=== PATIENT | female | born 1970 | race Caucasian/White ===

== ENCOUNTER 2022-02-21 11:40 | Emergency (ER) | payer OTHER ==
[~2022-02-21] VITALS: Ht 167.6 cm; Wt 81.6 kg
--- NOTE | 2022-02-21 12:22 | NUR ---
THE PATIENT IS BIBS FOR FEELING DEPRESSED, FEELING SUICIDAL W/ PLAN TO OVERDOSE ON DRUGS. DENIES HI. DENIES VISUAL/AUDITORY HALLUCINATIONS. DENIES PAIN. IN ROOM AIR AND DENIES SOB. RESPIRATION REGULAR AND UNLABORED. WILL CONTINUE TO MONITOR THE PATIENT. Addendum: 02/21/22 at 2130 by LSTOOR KATALINA ANGULO ETA- [phone]
--- NOTE | 2022-02-21 12:55 | NUR ---
PT UNALBLE TO PROVIDE URINE SAMPLE, PROVIDED WITH URINE SAMPLE CUP AND WATER, WILL ENCOURAGE HER TO PROVIDE SAMPLE AT A LATER TIME.
--- NOTE | 2022-02-21 12:58 | NUR ---
KWAKU ZEPEDA COLLECTED AND SENT
[2022-02-21 13:07] LABS: BASOPHILS % (AUTO) 0.6 % (0.0-2.0); EOSINOPHILS % (AUTO) 0.7 % (0.0-6.0); HEMATOCRIT 40 % (33-45); HEMOGLOBIN 13.5 g/dL (11.5-14.8); LYMPHOCYTES # (AUTO) 1.4 K/uL (0.8-4.8); LYMPHOCYTES % (AUTO) 22.8 % (20.0-44.0); MEAN CORPUSCULAR HGB CONC 34 g/dl (31.0-36.0); MEAN CORPUSCULAR VOLUME 95 fL (82-100); MONOCYTES # (AUTO) 0.5 K/uL (0.1-1.30); MONOCYTES % (AUTO) 8.2 % (2.0-12.0); NEUTROPHILS # (AUTO) 4.1 K/uL (1.8-8.9); NEUTROPHILS % (AUTO) 67.7 % (43.0-81.0); PLATELET COUNT (AUTO) 230 K/uL (150-450); RED BLOOD CELL COUNT(AUTO) 4.18 MIL/uL (4.0-5.2); WHITE BLOOD COUNT (AUTO) 6.1 K/uL (4.3-11.0)
--- NOTE | 2022-02-21 13:19 | NUR ---
urine collected and sent to the lab
[2022-02-21 13:22] LABS: ALANINE AMINOTRANSFERASE 26 U/L (12-78); ALBUMIN 3.3 g/dL (3.4-5.0); ALKALINE PHOSPHATASE 106 U/L (46-116); ASPARTATE AMINOTRANSFERASE 16 U/L (15-37); BILIRUBIN,DIRECT 0.1 mg/dL (0.0-0.2); BILIRUBIN,TOTAL 0.4 mg/dL (0.2-1.0); CALCIUM, SERUM 8.6 mg/dL (8.5-10.1); CARBON DIOXIDE 28 mmol/L (21-32); CHLORIDE 103 mmol/L (98-107); CREATININE 0.7 mg/dL (0.6-1.3); GLUCOSE 116 mg/dL (74-106); POTASSIUM 3.7 mmol/L (3.5-5.1); SODIUM SERUM 138 mmol/L (136-145); TOTAL PROTEIN, SERUM 6.9 g/dL (6.4-8.2); UREA NITROGEN, BLOOD 12 mg/dL (7-18)
[2022-02-21 13:33] LABS: ACETAMINOPHEN < 10 ug/ml (10-30); ALCOHOL, BLOOD < 3 mg/dL (0-0)
[2022-02-21 13:54] LABS: BILIRUBIN,URINE NEGATIVE (NEGATIVE); COLOR,URINE YELLOW (YELLOW); LEUKOCYTE ESTERASE ,URINE MODERATE (NEGATIVE); NITRITE, URINE NEGATIVE (NEGATIVE); PROTEIN,URINE NEGATIVE (NEGATIVE); UGLUCOSE NEGATIVE (NEGATIVE); UROBILINOGEN,URINE 0.2 EU/dL (0.2)
[2022-02-21 14:47] LABS: BACTERIA,URINE Moderate /HPF (None Seen); SQUAMOUS EPITHELIAL CELL,UR Many /HPF (None Seen); WBC,URINE 51-80 /HPF (0-3)
[2022-02-21] MEDS ORDERED: CEPHALEXIN MONOHYDRATE 500 MG CAPSULE PO ONE (16:06)
--- NOTE | 2022-02-21 16:22 | NUR ---
FAXED CLINICALS TO [facility].
[2022-02-21] MEDS ORDERED: CEPHALEXIN MONOHYDRATE 500 MG CAPSULE PO SCH (17:00)
--- NOTE | 2022-02-21 19:41 | NUR ---
ACCEPTED AT [facility] UNDER DR REECE
--- NOTE | 2022-02-21 21:15 | NUR ---
REPORT GIVEN TO CARMELITA CATHERINE FROM [facility]
--- NOTE | 2022-02-21 21:15 | NUR ---
[facility] CALLED FOR BLS TO [facility] 30 MIN
--- NOTE | 2022-02-21 23:18 | NUR ---
REPORT GIVEN TO [facility] FOR PT TO DC TO [facility]
[2022-02-22 00:15] VITALS: BP 134/85
== END 2022-02-21 23:18 ==
LOC: ER 11:45
DX: R45.851 Suicidal ideations (principal); N39.0 Urinary tract infection, site not specified; Z20.822 Contact with and (suspected) exposure to COVID-19; F31.9 Bipolar disorder, unspecified; I10 Essential (primary) hypertension; F20.9 Schizophrenia, unspecified; Z59.00 Homelessness unspecified
CPT/HCPCS: 99285; 85025; 80048; 87086; 80076; 84703; 81001; 36415; 87426; 80143; 80320; 80307; C9803; G0480

== ENCOUNTER 2022-03-31 22:28 | Emergency (ER) | payer OTHER ==
[~2022-03-31] VITALS: Ht 175.3 cm; Wt 80.7 kg
--- NOTE | 2022-03-31 22:45 | NUR ---
PATIENT BIBSELF C/O +SI WITH PLAN. PATIENT IS A/O X 4 RR EVEN AND UNLABORED NO SOB NOTED, VSS, NO ACUTE DISTRESS NOTED. PATIENT IS AFEBRILE. PATIENT WANDED BY SECURITY. PATIENT BELONGINGS TAKEN AND PLACED IN LOCKER. SITTER AT BEDSIDE. WILL CONTINUE TO MONITOR.
--- NOTE | 2022-03-31 22:53 | NUR ---
URINE COLLECTED SENT TO LAB
--- NOTE | 2022-03-31 22:59 | NUR ---
COVID SWAB COLLECTED AND SENT TO LAB
[2022-03-31 23:15] LABS: BASOPHILS % (AUTO) 0.6 % (0.0-2.0); EOSINOPHILS % (AUTO) 0.4 % (0.0-6.0); HEMATOCRIT 41 % (33-45); HEMOGLOBIN 14.1 g/dL (11.5-14.8); LYMPHOCYTES # (AUTO) 1.5 K/uL (0.8-4.8); LYMPHOCYTES % (AUTO) 22.9 % (20.0-44.0); MEAN CORPUSCULAR HGB CONC 35 g/dl (31.0-36.0); MEAN CORPUSCULAR VOLUME 93 fL (82-100); MONOCYTES # (AUTO) 0.7 K/uL (0.1-1.30); MONOCYTES % (AUTO) 10.7 % (2.0-12.0); NEUTROPHILS # (AUTO) 4.4 K/uL (1.8-8.9); NEUTROPHILS % (AUTO) 65.4 % (43.0-81.0); PLATELET COUNT (AUTO) 202 K/uL (150-450); WHITE BLOOD COUNT (AUTO) 6.7 K/uL (4.3-11.0)
[2022-03-31 23:30] LABS: CALCIUM, SERUM 9.3 mg/dL (8.5-10.1); CARBON DIOXIDE 28 mmol/L (21-32); CHLORIDE 99 mmol/L (98-107); CREATININE 0.8 mg/dL (0.6-1.3); GLUCOSE 112 mg/dL (74-106); SODIUM SERUM 136 mmol/L (136-145); UREA NITROGEN, BLOOD 7 mg/dL (7-18)
[2022-03-31 23:38] LABS: ACETAMINOPHEN 0 ug/ml (10-30); ALANINE AMINOTRANSFERASE 26 U/L (12-78); ALBUMIN 3.6 g/dL (3.4-5.0); ALCOHOL, BLOOD < 3 mg/dL (0-0); ALKALINE PHOSPHATASE 111 U/L (46-116); ASPARTATE AMINOTRANSFERASE 20 U/L (15-37); BILIRUBIN,DIRECT 0.2 mg/dL (0.0-0.2); BILIRUBIN,TOTAL 0.8 mg/dL (0.2-1.0); TOTAL PROTEIN, SERUM 7.4 g/dL (6.4-8.2)
[2022-03-31 23:51] LABS: BILIRUBIN,URINE NEGATIVE (NEGATIVE); COLOR,URINE YELLOW (YELLOW); LEUKOCYTE ESTERASE ,URINE LARGE (NEGATIVE); NITRITE, URINE NEGATIVE (NEGATIVE); PROTEIN,URINE NEGATIVE (NEGATIVE); UGLUCOSE NEGATIVE (NEGATIVE); UROBILINOGEN,URINE 0.2 EU/dL (0.2)
[2022-03-31 23:54] LABS: BACTERIA,URINE Few /HPF (None Seen); RBC,URINE 0-2 /HPF (0-2); SQUAMOUS EPITHELIAL CELL,UR Few /HPF (None Seen)
--- NOTE | 2022-04-01 03:15 | NUR ---
CLINICALS FAXED TO INTAKE
--- NOTE | 2022-04-01 06:01 | NUR ---
PATIENT ACCEPTED AT [facility] RONALD RICHTER REPORT [phone] UNIT 2 REPORT TO BE GIVEN AFTER CHANGE OF SHIFT
--- NOTE | 2022-04-01 08:06 | NUR ---
Report given to nyla [place] transfer to be arranged
--- NOTE | 2022-04-01 08:10 | NUR ---
[facility] called for transport to [facility] 1h30m
--- NOTE | 2022-04-01 11:25 | NUR ---
TRANSPORT ARRIVED TO TAKE PT TO [facility]
[2022-04-01 11:48] VITALS: BP 130/76
== END 2022-04-01 11:30 ==
LOC: ER 22:38
DX: R45.851 Suicidal ideations (principal); F31.9 Bipolar disorder, unspecified; I10 Essential (primary) hypertension
CPT/HCPCS: 99285; 85025; 80048; 87086; 80076; 81001; 36415; 87426; 80143; 80320; 80307; 84703; C9803; G0480